=== PATIENT | female | born 1940 | race Caucasian/White ===

== ENCOUNTER 2021-10-02 21:19 | Inpatient (IN) | payer MEDICARE, MEDICAID ==
[~2021-10-02] VITALS: Ht 157.5 cm; Wt 88.0 kg
[2021-10-02 22:12] LABS: RED BLOOD COUNT 4.72 M/UL (4.00-5.10); WHITE BLOOD COUNT 4.6 K/UL (4.5-11.0)
[2021-10-02 22:49] LABS: BUN/CREATININE RATIO 19 (0-10)
[2021-10-03] MEDS ORDERED: CARVEDILOL6.25 MG PO (02:47)
[2021-10-03] MEDS ORDERED: SYNTHROID112 MCG PO (02:47)
[2021-10-04 05:18] LABS: HEMOGLOBIN 13.2 gm/dl (12.3-15.3); RED BLOOD COUNT 4.44 M/UL (4.00-5.10); WHITE BLOOD COUNT 5.5 K/UL (4.5-11.0)
--- NOTE | 2021-10-05 10:07 | NUR ---
PATIENT LEFT FLOOR AT 0830AM [employer]. SHE RETURNS TO FLOOR AT 1000AM [employer]. RIGHT LEG SITE C/D/I, NO DRAINAGE NOTED. PATIENT HAS NO COMPLAINTS OF PAIN OR DISCOMFORT. WILL CONTINUE TO MONITOR
[2021-10-05] MEDS ORDERED: ECOTRIN81 MG PO (13:14)
[2021-10-05] MEDS ORDERED: LIPITOR40 MG PO (13:14)
[2021-10-05] MEDS ORDERED: ISOSORBIDE MONO30 MG PO (13:14)
[2021-10-05] MEDS ORDERED: VALSARTAN160 MG PO (13:14)
--- NOTE | 2021-10-05 13:31 | NUR ---
PATIENT ALLOWED TO GET UP AT 1230 TODAY. I INSTRUCT PATIENT SHE CAN GET UP, SHE ASKED TO LAY AND REST A LITTLE LONGER. AT 1300 PATIENT ASKED TO GET UP TO THE BATHROOM. ASSISTED TO TO THE BATHROOM DRESSING TO THE RIGHT GROIN IN PLACE AND INTACT. NO S/S BLEEDING OR DRAINAGE NOTED WILL CONTINUE TO MONITOR.
== END 2021-10-05 15:12 | disposition home or self-care (01) | DRG 281 ==
LOC: ER1 21:19 → PROG CARE 10-03 00:39 → CDU 10-03 00:39 → PROG CARE 10-03 02:44
PROVIDERS: Emergency Medicine; ADMIT Internal Medicine
PROC: 4A023N7 Measurement of Cardiac Sampling and Pressure, Left Heart, Percutaneous Approach (ICD-10-PCS; 2021-10-02)
PROC: B2111ZZ Fluoroscopy of Multiple Coronary Arteries using Low Osmolar Contrast (ICD-10-PCS; 2021-10-02)
PROC: B24BZZZ Ultrasonography of Heart with Aorta (ICD-10-PCS; principal; 2021-10-03)
DX: I21.4 Non-ST elevation (NSTEMI) myocardial infarction (principal); I16.9 Hypertensive crisis, unspecified; I16.1 Hypertensive emergency; Z20.822 Contact with and (suspected) exposure to COVID-19; I10 Essential (primary) hypertension; I16.0 Hypertensive urgency; E03.9 Hypothyroidism, unspecified; I08.3 Combined rheumatic disorders of mitral, aortic and tricuspid valves; Z79.01 Long term (current) use of anticoagulants; Z79.82 Long term (current) use of aspirin; Z82.49 Family history of ischemic heart disease and other diseases of the circulatory system
CPT/HCPCS: ECHO; 36415; 70450; 80048; 80053; 80061; 82550; 82553; 83874; 83880; 84439; 84443; 84484; 85025; 85610; 85730; 93005; 93306; 99152; 99153; 99285; C1769; J1644; J2250; J7070; Q9965; Q9967; U0002

== ENCOUNTER 2021-10-16 10:28 | Emergency (ER) | payer MEDICARE ==
[~2021-10-16 10:28] MED LIST: CARVEDILOL6.25 MG PO; ECOTRIN81 MG PO; ELIQUIS 5 MG TAB5 MG PO; ISOSORBIDE MONO30 MG PO; LIPITOR40 MG PO; SYNTHROID112 MCG PO; VALSARTAN160 MG PO; VITAMIN D3125 MCG PO
[2021-10-16 10:57] LABS: HEMOGLOBIN 11.6 gm/dl (12.3-15.3); RED BLOOD COUNT 3.97 M/UL (4.00-5.10); WHITE BLOOD COUNT 4.2 K/UL (4.5-11.0)
[2021-10-16 11:22] LABS: BUN/CREATININE RATIO 11 (0-10)
== END 2021-10-16 16:00 | disposition home or self-care (01) ==
LOC: ER1 10:28
PROVIDERS: Family Medicine
DX: M25.511 Pain in right shoulder (principal)
CPT/HCPCS: 71045; 73030; 80053; 82550; 82553; 83874; 84484; 85025; 85379; 93005; 99284